=== PATIENT | male | born 1990 | race Caucasian/White ===

== ENCOUNTER 2016-11-21 10:48 | Emergency (ER) | payer OTHER ==
--- NOTE | 2016-11-21 11:11 | EDM.PDOC ---
ED HPI GENERAL MEDICAL PROBLEM - General Chief Complaint: Skin Complaint Stated Complaint: RASH ON LEGS Time Seen by Provider: 11/21/16 11:04 Source of Information: Reports: Patient History Limitations: Reports: No Limitations - History of Present Illness INITIAL COMMENTS - FREE TEXT/NARRATIVE: HISTORY AND PHYSICAL: []26-year-old male presents with a rash on his right leg History of Present Illness: []2 day history of pleuritic rash linear in presentation erythematous very puritic Review of Systems: As per history of present illness and below otherwise all systems reviewed and negative. Past medical history: As per history of present illness and as reviewed below otherwise noncontributory. Surgical history: As per history of present illness and as reviewed below otherwise noncontributory. Social history: No reported history of drug or alcohol abuse. Family history: As per history of present illness and as reviewed below otherwise noncontributory. Physical exam: "Alert and oriented 26-year-old who states"I don't believe been medicine" but this is been running up my leg HEENT: Atraumatic, normocehpalic, pupils reactive, negative for conjunctival pallor or scleral icterus, neck supple, nontender, trachea midline. Lungs: Clear to auscultation, breath sounds equal bilaterally, chest non tender. Heart: S1S2, regular, negative for clicks, rubs, or JVD. Abdomen: Soft, nondistended, nontender. Negative for masses or hepatossplenmegaly. Negative for costovertebral tenderness. Pelvis: Stable nontender. Genitourinary: Deferred. Rectal: Deferred Extremities: Atraumatic, negative for cords or calf pain. Erythematous rash that is warm to touch slightly raised no pustular component noted near fashion from mid calf up through the thigh. Neurovascular unremarkable. Neuro: Awake, alert, oriented. Cranial nerves II through XII unremarkable. Cerebellum unremarkable. Motor and sensory unremarkable throughout. Exam nonfocal. Diagnostics: [] Therapeutics: [Benadryl 25 mg IM] Impression: [Contact dermatitis] Plan: [Discharge to home Zyrtec [id number] medication one daily for the next week Benadryl 2 capsules every 4 hours as needed for itching Dexamethasone cream, a thin amount, 3 times a day to area] Definitive disposition and diagnosis as appropriate pending reevaluation and review of above. - Related Data Home Meds: Home Meds Betamethasone Dipropionate 10 gm TP TID 5 Days #1 tube 11/21/16 [Rx] ED ROS GENERAL - Review of Systems Review Of Systems: ROS reveals no pertinent complaints other than HPI. ED EXAM, SKIN/RASH Exam: See Below (see dictation) Departure - Departure Time of Disposition: 11:07 Disposition: Home, Self-Care 01 Condition: Good Clinical Impression: Contact dermatitis Qualifiers: Contact dermatitis type: unspecified Contact dermatitis trigger: other trigger Qualified Code(s): L25.8 - Unspecified contact dermatitis due to other agents - Discharge Information Prescriptions: Betamethasone Dipropionate 10 gm TP TID 5 Days #1 tube Instructions: Contact Dermatitis, [id number] Referrals: PCP,None [Primary Care Provider] - Additional Instructions: The following information is given to patients seen in the emergency department who are being discharged to home. This information is to outline your options for follow-up care. We provide all patients seen in our emergency department with a follow-up referral. The need for follow-up, as well as the timing and circumstances, are variable depending upon the specifics of your emergency department visit. If you don't have a primary care physician on staff, we will provide you with a referral. We always advise you to contact your personal physician following an emergency department visit to inform them of the circumstance of the visit and for follow-up with them and/or the need for any referrals to a consulting specialist. The emergency department will also refer you to a specialist when appropriate. This referral assures that you have the opportunity for followup care with a specialist. All of these measure are taken in an effort to provide you with optimal care, which includes your followup. Under all circumstances we always encourage you to contact your private physician who remains a resource for coordinating your care. When calling for followup care, please make the office aware that this follow-up is from your recent emergency room visit. If for any reason you are refused follow-up, please contact the [facility] emergency department at and asked to speak to the emergency department charge nurse. Zyrtec [id number] allergy medicine once daily 1 week Benadryl [id number] 2 capsules every 4 hours for itching Prescription has been written for betamethasone cream, apply a thin amount 3 times daily as needed for itching Follow-up with your primary care provider
[2016-11-21 11:24] VITALS: BP 124/65
== END 2016-11-21 11:20 | disposition home or self-care (01) ==
LOC: MW.ED 10:48
DX: L25.8 Unspecified contact dermatitis due to other agents (principal)
CPT/HCPCS: 99282